=== PATIENT | male | born 1975 | race Caucasian/White ===

== ENCOUNTER → 2020-05-23 | Outpatient (CLI) | payer OTHER ==
[~2020-05-23] MED LIST: KEFLEX500 MG PO; NOHOMEMEDICATIONS; NORCO 5-325 TA1 EACH PO; VICODIN 5-5001 EACH PO; ZESTORETIC 20-1 EACH PO
--- NOTE | 2020-05-23 16:13 | 2DMMODE ---
[place] [address] 2 D/M-MODE ECHOCARDIOGRAM Name: FARA NO Room: [facility]#: [id number] Admission: 05/23/20 Attend Phys: Omar Holley Discharge: Date of : 75 Date of Service: 05/23/20 1612 Report #: [id number] THIS REPORT FOR: cc: Omar Holley,Omar Rodriguez,Gilles Pacheco MD [facility] ~ APPROVED REPORT Study performed: 05/23/2020 13:06:46 EXAM: Comprehensive 2D, Doppler, and color-flow Echocardiogram Patient Location: Out-Patient BSA: 2.16 HR: 68 bpm BP: 150/90 mmHg Other Information Study Quality: Good Indications Murmur 2D Dimensions IVSd: 12.21 (7-11mm) LVOT Diam: 20.10 (18-24mm) LVDd: 46.95 mm PWd: 12.90 (7-11mm) Ascending Ao: 31.63 (22-36mm) LVDs: 26.86 (25-40mm) Aortic Root: 28.76 mm Volumes Left Atrial Volume (Systole) LA ESV Index: 22.00 mL/m2 Aortic Valve AoV Peak Trevon.: 1.03 m/s AO Peak Gr.: 4.27 mmHg LVOT Max P.47 mmHg AO Mean Gr.: 2.37 mmHg LVOT Mean P.59 mmHg LVOT Max V: 0.93 m/s AO V2 VTI: 20.73 cm LVOT Mean V: 0.57 m/s DAVID (VTI): 3.12 cm2 LVOT V1 VTI: 20.39 cm Mitral Valve E/A Ratio: 1.01 [place] [address] 2 D/M-MODE ECHOCARDIOGRAM Name: FARA NO [id number] Admission: 05/23/20 Attend Phys: Omar Holley Discharge: Date of : 75 Date of Service: 05/23/20 1612 Report #: [id number] MV Decel. Time: 244.49 ms MV E Max Trevon.: 0.64 m/s MV PHT: 70.90 ms MVA (PHT): 3.10 cm2 TDI E/Lateral E': 4.92 E/Medial E': 8.00 Medial E' Trevon.: 0.08 m/s Lateral E' Trevon.: 0.13 m/s Pulmonary Valve PV Peak Trevon.: 0.77 m/s PV Peak Gr.: 2.39 mmHg Left Ventricle The left ventricle is normal size. There is normal LV segmental wall motion. Mild concentric left ventricular hypertrophy. Left ventricular systolic function is normal. The left ventricular ejection fraction is within the normal range. LVEF is 55-60%. Grade I - abnormal relaxation pattern. Right Ventricle The right ventricle is normal size. The right ventricular systolic function is normal. Atria Left atrium is mildly dilated. The right atrium size is normal. Aortic Valve The aortic valve is normal in structure. No aortic regurgitation is present. There is no aortic valvular stenosis. Mitral Valve The mitral valve is normal in structure. Trace to mild mitral regurgitation. No evidence of mitral valve stenosis. Tricuspid Valve The tricuspid valve is normal in structure. There is no tricuspid valve regurgitation noted. Pulmonic Valve The pulmonary valve is normal in structure. There is no pulmonic valvular regurgitation. Great Vessels The aortic root is normal in size. [place]C [place] [address] 2 D/M-MODE ECHOCARDIOGRAM Name: FARA NO Room: [facility]#: [id number] Admission: 05/23/20 Attend Phys: Omar Holley Discharge: Date of : 75 Date of Service: 05/23/20 1612 Report #: [id number] collapses >50% with inspiration. Pericardium There is no pericardial effusion. <Conclusion> The left ventricle is normal size. Mild concentric left ventricular hypertrophy. Left ventricular systolic function is normal. The left ventricular ejection fraction is within the normal range. LVEF is 55-60%. Grade I - abnormal relaxation pattern. The right ventricle is normal size. Left atrium is mildly dilated. The right atrium size is normal. The aortic valve is normal in structure. The mitral valve is normal in structure. Trace to mild mitral regurgitation. The tricuspid valve is normal in structure. IVC is normal in size and collapses >50% with inspiration. There is no pericardial effusion. There is normal LV segmental wall motion. <ELECTRONICALLY SIGNED> By: Gilles Wilkerson MD, FACC 05/23/20 [id number] Gilles Wilkerson MD, FACC /INF
== END ==
LOC: M.CRD 13:00
PROVIDERS: ATTEND Family Medicine
DX: I34.0 Nonrheumatic mitral (valve) insufficiency (principal); I10 Essential (primary) hypertension